=== PATIENT | female | born 1990 | race Caucasian/White ===

== ENCOUNTER 2021-04-17 08:21 | Outpatient (REF) | payer OTHER, SELFPAY | END 2021-04-17 08:22 | disposition home or self-care (01) | LOC: HO.HMGCLDS 08:21 | PROVIDERS: Visit Provider Internal Medicine | DX: Z20.822 Contact with and (suspected) exposure to COVID-19 (principal) | CPT/HCPCS: C9803; U0003; U0005 ==

== ENCOUNTER 2022-02-22 22:18 | Emergency (ER) | payer OTHER, SELFPAY ==
--- NOTE | ~2022-02-22 | XR_ITS ---
EXAMINATION: XR LUMBOSACRAL SPINE CLINICAL INFORMATION: Back pain COMPARISON: None TECHNIQUE: Three views of the lumbosacral spine. FINDINGS: There are 6 nonrib-bearing lumbar vertebrae. There is suggestion of pars defects of the inferior most lumbar vertebrae with slightly grade 1 anterolisthesis on S1. There is otherwise anatomic alignment of the vertebral bodies and posterior elements. Vertebral body heights are maintained. Intervertebral disc spaces are preserved. No acute fracture is seen. Sacroiliac joints are intact. IUD overlies the pelvis. XR/XR lumbar spine 2-3V IMPRESSION: 6 nonrib-bearing lumbar vertebrae. There is suggestion of pars defects of the inferior most lumbar vertebrae with slightly grade 1 anterolisthesis on S1.
[2022-02-22 22:20] VITALS: BP 136/67; PULSE 74; RESP 18; TEMP 36.3; O2SAT 97; BMI 40.7
--- NOTE | 2022-02-23 00:34 | ED.BACK ---
HPI - Back Pain/Injury General Chief Complaint: Back Pain/Injury Stated Complaint: Sciatica Time Seen by Provider: 02/23/22 00:19 Source: patient Mode of arrival: ambulatory Limitations: no limitations History of Present Illness HPI Narrative: 32-year-old female presents to ED for back pain radiating down left leg. patient states pain occrued after lifting trash bag. Patient denies abdominal pain, dysuria, hematuria, flank pain, fever, chills, urinary/bowel incontinence, IV drug use, or any immunocomprimise diseases Related Data Previous Rx's Medication Instructions Recorded ketorolac 10 mg tablet 10 mg PO QID PRN pain 5 days #20 02/23/22 tabs prednisone 20 mg tablet 40 mg PO DAILY 5 days #10 tabs 02/23/22 Allergies Allergy/AdvReac Type Severity Reaction Status Date / Time No Known Allergies Allergy Unverified 01/05/20 18:07 Review of Systems Review of Systems: lower back pain Yes all other systems are reviewed and are negative PMFSH Social History Social History Advance Directives: No Advance Directives Information Provided: No Physical Exam Vital Signs: Vital Signs: Last Vital Signs Temp 97.4 F 02/22/22 22:20 Pulse 71 02/23/22 00:37 Resp 18 02/23/22 00:37 BP 133/75 02/23/22 00:37 Pulse Ox 97 02/23/22 00:37 O2 Del Method 02/23/22 00:37 BMI result Body Mass Index 40.7 Const: General: cooperative, healthy appearing, comfortable, no acute distress, well developed, alert, awake and Physically active Orientation/consciousness: oriented to time and patient oriented x3 HEENT: Head: Yes normal to inspection, Yes No palpable skull fracture present, Yes normocephalic, Yes atraumatic and No abrasion Eyes: General: appearance normal, both eyes and all related structures Neck: Neck: Yes normal visual inspection, Yes full ROM, Yes no lymphadenopathy, Yes no meningeal signs, Yes trachea midline, Yes supple, No anterior neck swelling and No tender Chest: Chest palpation & inspection: normal inspection of the chest and normal palpation of entire chest wall Resp: Effort & Inspection: normal respiratory effort and able to speak in complete sentences Auscultation: clear to auscultation bilaterally Cardio: Jugular venous distension: no JVD Heart sounds: S1 normal heart sound present and S2 normal heart sound present GI: Inspection: Yes normal to inspection and No abdominal wall ecchymosis Palpation (GI): Soft to palpation, not firm, nontender, no guarding and not rigid : General: No CVA tenderness and Yes no CVA tenderness Back/Spine/Pelvis: Back: no CVA tenderness, No CVA tenderness and back tenderness (lumbar spine) Skin: General skin exam: no rashes or lesions noted and elasticity normal Neuro: General: oriented to time, patient oriented x3, gait normal, tone normal, no meningeal signs and CN's II-XI intact bilaterally Cranial nerves: Yes CN's II-XII intact bilaterally Extrem: General: Yes normal to inspection and Yes full ROM Psych: Appearance: grossly normal, well kempt and not disheveled Course Course Course Narrative: X-ray UA ordered Reevaluation(s) Reevaluation #1: Ua normal. Xray negative for facture but shows arthritis Time: 01:25 MDM - Back Pain/Injury MDM Narrative Medical decision making narrative: Lumbar radiculopahty Lab Data Labs: Lab Results 02/23/22 02/23/22 Range/Units 00:35 00:35 Urine Color Yellow Urine Appearance Clear Urine pH 5.5 (5.0-9.0) Ur Specific [place] >= 1.030 H (1.005-1.025) Urine Protein Trace (Neg-Trace) mg/dL Urine Glucose (UA) Negative (Negative) mg/dL Urine Ketones Trace (Negative) mg/dL Urine Blood Negative (Negative) Urine Nitrite Negative (Negative) Ur Leukocyte Esterase Negative (Negative) Urine Test NEGATIVE (NEGATIVE) Discharge Plan Discharge Clinical Impression: Lumbar radiculopathy Patient Disposition: Home, Self-Care Additional Instructions: Return to the ED for any urinary/bowel incontinence, abdominal pain, nausea, vomiting, dysuria, hematuria, flank pain, fever, chills or worsening back pain, inability to walk, paralysis of lower extremities, or any other concerning symptoms. Please follow up with PCP. Prescriptions: New ketorolac 10 mg tablet 10 mg PO QID PRN (Reason: pain) 5 Days Qty: 20 0RF Rx Instructions: received toradol 30mg in the ED prednisone 20 mg tablet 40 mg PO DAILY 5 Days Qty: 10 0RF Referrals: Bashiruddin,Vinny [Primary Care Provider] - (Lumbar radiculopathy) Interventions: ED Discharge Assessment Last Done: 02/23/22 02:10 Discharge Date/Time: 02/23/22 02:11 Print Language: E[place]
[2022-02-23 00:37] VITALS: BP 133/75; PULSE 71; RESP 18; O2SAT 97
[2022-02-23 00:53] LABS: Appearance Urine Clear; Color Urine Yellow; Glucose Urine UA Negative (Negative); Leukocyte Esterase Urine Negative (Negative); Nitrite Urine Negative (Negative); PH 5.5 (5.0-9.0); Specific Gravity - Urine >= 1.030 (1.005-1.025); Urine Blood Negative (Negative); Urine Ketones Trace mg/dL (Negative); Urine Protein Trace mg/dL (Neg-Trace)
[2022-02-23 00:58] LABS: UPreg QC Valid YES; Urine Pregnancy NEGATIVE (NEGATIVE)
[2022-02-23] MEDS: predniSONE 20 MG TABLET 40 MG PO (01:38)
[2022-02-23] MEDS: Ketorolac Tromethamine 30 MG/ML VIAL IM (01:38)
== END 2022-02-23 02:11 | disposition home or self-care (01) ==
PROVIDERS: Physician Assistant; Emergency Provider Student in an Organized Health Care Education/Training Program; PCP Internal Medicine
DX: M54.42 Lumbago with sciatica, left side (principal); Z79.899 Other long term (current) drug therapy
CPT/HCPCS: 72100; 81003; 81025; 96374; 99284; J1885